=== PATIENT | male | born 1950 | race Caucasian/White ===

== ENCOUNTER → 2016-12-29 | Outpatient (CLI) | payer MEDICARE ==
[~2016-12-29] MED LIST: ACETAMINOPHEN650 M3 PO; AMLODIPINE BESYL5 MG PO; ASPIRIN81 M2 PO; AVANDIA4 MG PO; AVAPRO300 M1 PO; BYETTA5 MCG/0.02 SQ; COATED ASPIRIN325 M1 PO; COREG3.125 MG PO; COZAAR PO; CRESTOR10 MG DOB; FISH OIL 1,0001 EAC1 PO; FORTAMET1000 MG/B1 PO; GLIPIZIDE10 MG/BOTT PO; HUMALOG100 U/ML; IMDUR-ER30 M3; JANUVIA PO; LANTUS SOLOSTAR3 ML; LANTUS100 UNITS/ SUBQ; LIPITOR40 MG PO; MULTI-DAY1 TAB PO; PREVACID PO; ZANAFLEX4 M1 PO; ZESTRIL10 M2 PO
--- NOTE | ~2016-12-29 | CT137 ---
[facility] A Service of [facility] RADIOLOGY TEXT RESULTS PATIENT: KEELY THOMPSON LOCATION: [facility] : 48 UNIT #: [id number] AGE: [address]: Jodi Ayala MD SEX: M ORDER DR: [id number] [facility] [address] [place], [place] [address] [id number] O MR#: [id number] Acc #: [id number] NAME: KEELY THOMPSON : 1950 SEX: M STUDY DATE/TIME: 12/29/2016 10:00 UNIT: [facility] ROOM: STUDY DESCRIPTION: CT Lung Screening annual Attending Physician: Jodi Ayala M.D. Referring Physician: Jodi Ayala M.D. Ordering Physician: Jodi Ayala M.D. Primary Care Physician: Jodi Ayala M.D. MEDICAL IMAGING REPORT This report is preliminary unless electronic signature is present EXAM CT lung cancer screening INDICATIONS Lung cancer screening. 30-[id number]-[id number] smoking history. TECHNIQUE Unenhanced CT of the chest performed per lung cancer screening protocol. CTDI 2.6 mGy. Total DLP 105 mGy/cm. This CT exam was performed with one or more of the following radiation dose reduction techniques: automatic exposure control, adjustment of mA and/or kV according to patient size, and iterative reconstruction. COMPARISON 12/09/2015. FINDINGS Emphysema with mild respiratory motion. No suspicious pulmonary nodule. No adenopathy. Coronary artery calcification. No clearly acute finding in the included upper abdomen but the upper abdomen is significantly degraded by low-dose technique and body habitus. No aggressive appearing bone lesion. IMPRESSION 1. No suspicious pulmonary nodule. 2. Significant emphysema. 3. Lung-RADS category 1, negative. Per the ACR Lung-RADS recommendation, suggest patient continue with annual low-dose lung cancer screening. [facility] A Service of [facility] RADIOLOGY TEXT RESULTS PATIENT: KEELY THOMPSON LOCATION: [facility] : 48 UNIT #: [id number] AGE: [address]: Jodi Ayala MD SEX: M ORDER DR: Dictated by... Tod Cardenas M.D. THIS IS AN ELECTRONICALLY VERIFIED REPORT Tod Cardenas M.D. at 01/04/2017 8:52 AM EED/pcl TD: 12/29/2016 15:04 JOB #: [id number] MEDICAL IMAGING REPORT Page 1 of 1 COPY
== END | disposition home or self-care (01) ==
LOC: CCAT 09:22
DX: F17.210 Nicotine dependence, cigarettes, uncomplicated (principal)
CPT/HCPCS: G0297